=== PATIENT | male | born 1995 | race Caucasian/White ===

== ENCOUNTER 2016-08-05 21:04 | Emergency (ER) | payer BC ==
--- NOTE | 2016-08-05 22:01 | ED CLINICAL REPORT ---
Clinical Report - Physicians/Mid Levels [facility] [address] [place] [address] 08/05/2016 21:06 Patient: CHITO MARTE Time Seen: 21:44. Arrived- By private vehicle. Historian- patient. HISTORY OF PRESENT ILLNESS Chief Complaint: congestion and dyspnea. This started just prior to arrival and is still present but is better now. (patient states that his dyspnea is gone; he still has moderate nasal congestion.). The illness is described as mild. No cough, sputum production, chest discomfort or pain or fever. No muscle aches, chills, sore throat, hoarseness or nasal discharge. No sinus pressure, sinus drainage or ear pain. He has had difficulty breathing (Patient was out riding his skateboard, when he suddenly began to feel as though his nose Airways were congested. He states that he has a history of this happening previously when he was playing in a grassy field when he was younger. Patient occasionally has mild hayfever type allergies in the spring, but otherwise has no allergies. Patient states he did not take any medications, but called his mother, who told him to come to the emergency department. Patient does note that he sneezed quite a few times at onset of symptoms.). He has had nasal congestion. Additional history - No known contact with a sick individual. Similar symptoms previously: Occasionally. Recent medical care: Not recently seen/assessed. REVIEW OF SYSTEMS No headache, eye discomfort, nausea, vomiting or diarrhea. No abdominal pain, pedal edema, calf pain, difficulty with urination or skin rash. No enlarged lymph nodes or joint pain. The patient has had hay fever. All systems otherwise negative, except as recorded above. PAST HISTORY Problems: no known problems. Additional Surgeries: Tonsillectomy. Medications: None. Allergies: None. SOCIAL HISTORY Smoker- current status unknown. Occasional alcohol use. History of drug use: marijuana. ADDITIONAL NOTES The nursing notes have been reviewed. PHYSICAL EXAM Vital Signs: 08/05/2016 21:46 BP: 112/67. HR: 84. RR: 15. O2 saturation: 100%. Temp: 98.1 F. Pain level now: 0/10. Have been reviewed. Appearance: Alert. No acute distress. Eyes: Pupils equal, round and reactive to light. Eyes normal inspection. ENT: Nose normal. Pharynx normal. Uvula midline. (No edema of the facial or oropharyngeal structures.). No muffled or hoarse voice or trouble handling secretions. Neck: Normal inspection. CVS: Normal heart rate and rhythm. Heart sounds normal. Pulses normal. Respiratory: No respiratory distress. Breath sounds normal. Abdomen: Soft and nontender. Back: Normal inspection. Skin: Skin warm and dry. Normal skin color. No rash. Normal skin turgor. Extremities: Extremities exhibit normal ROM. No lower extremity edema. Neuro: (Grossly normal.). LABS, X-RAYS, AND EKG Pulse Oximetry: 08/05/2016 21:46 O2 saturation: 100%. (FIO2 - room air). Interpretation: normal. PROGRESS AND PROCEDURES Course of Care: I discussed with the patient that his examination was normal, and that I did not feel he was having an anaphylactic reaction. Patient stated that he felt much better, and that he had just been worried when he felt the initial trouble breathing. I did give the patient a dose of Benadryl here in the emergency department. I did not feel that he needed epinephrine at this time, or further treatment. We have discussed indications for return. Patient counseled in person regarding the patient's stable condition, diagnosis and need for follow-up. Concerns were addressed. Old medical records reviewed. Disposition: Discharged. Condition: stable and improved. CLINICAL IMPRESSION Acute seasonal allergic rhinitis. INSTRUCTIONS Drink plenty of fluids. (You may take Benadryl if symptoms continue. If you have worsening breathing troubles, please return to the emergency department.). Warnings: GENERAL WARNINGS: Return or contact your physician immediately if your condition worsens or changes unexpectedly, if not improving as expected, or if other problems arise. Follow-up: Follow up with your doctor as scheduled. Understanding of the discharge instructions verbalized by patient. (Electronically signed by Barbara Guillory MD 08/05/2016 23:32)
--- NOTE | 2016-08-05 22:01 | ED ORDER SUMMARY ---
..... Patient: CHITO MARTE OrderSheet [facility] VisitID: [id number] [address] [place] [address] 21y, M Registration Date/Time: 08/05/2016 ORDER SHEET Weight: 58.9 kg (stated) Allergies: None GENERAL ORDERS: MEDICATION ORDERS: Benadryl PO 25 mg (NOW) (21:58 08/05/2016 Angel BELTRAN) (Ack 22:06 Yon R.N.) (22:15 Yon R.N.) IV FLUIDS: ORDER SHEET NOTES: [Electronically signed by Varghese Vieira R.N. (22:38 08/05/2016)] [Electronically signed by Barbara Guillory MD (23:32 08/05/2016)] [Electronically locked/signed by Varghese Vieira R.N. (22:38 08/05/2016)]
--- NOTE | 2016-08-05 22:01 | ED ORDER SUMMARY ---
..... Patient: CHITO MARTE OrderSheet [facility] VisitID: [id number] [address] [place] [address] 21y, M Registration Date/Time: 08/05/2016 ORDER SHEET Weight: 58.9 kg (stated) Allergies: None GENERAL ORDERS: MEDICATION ORDERS: Benadryl PO 25 mg (NOW) (21:58 08/05/2016 Angel BELTRAN) (Ack 22:06 Yon R.N.) (22:15 Yon R.N.) IV FLUIDS: ORDER SHEET NOTES: [Electronically signed by Varghese Vieira R.N. (22:38 08/05/2016)] [Electronically signed by Barbara Guillory MD (23:32 08/05/2016)] [Electronically locked/signed by Varghese Vieira R.N. (22:38 08/05/2016)]
--- NOTE | 2016-08-05 22:01 | ED NURSING NOTES ---
Clinical Report - Nurses [facility] [address] [place] [address] 08/05/2016 21:06 Patient: CHITO MARTE TRIAGE Triage time 21:46 Aug 05 2016. Acuity: LEVEL 5. Chief Complaint: (pt reports long boarding and had a "sneezing fit" pt called his mom and was told to come to the ED). Alert. No acute distress. SEPSIS SCREEN: Sepsis Screen. Negative (no infection suspected/documented). PAZ COMA SCORE: [place] Coma Scale: 15- eyes open spontaneously (4); best verbal response- oriented x 4 (5); best motor response- obeys commands (6). --21:49 Varghese Vieira R.N. 21:46 08/05/16. BP: 112/67. HR: 84. RR: 15. O2 saturation: 100%. Temp: 98.1 F. Pain level now: 0/10. --21:49 Varghese Vieira R.N. Weight: 58.9 kg stated. Height/Length: 66 inches Per Patient. BMI: 21. --21:47 Varghese Vieira R.N. Medications None. --21:47 Varghese Vieira R.N. Medication/allergy information source: the patient. --21:49 Varghese Vieira R.N. Allergies None. --21:47 Varghese Vieira R.N. History Arrived by private vehicle. Historian: patient. Onset. (1999 today). Treatment GUEST SERVICES: None. PAST MEDICAL HX: Immunizations: up-to-date. SOCIAL HX: Heavy tobacco smoker (cigarette)- 1 pack per day. Occasional alcohol use. History of occasional drug use: marijuana. No infectious disease exposure. ABUSE ASSESSMENT: No report of abuse. SELF HARM ASSESSMENT: A self harm assessment was performed. The patient answered "no" to the question "Do you have thoughts of harming or killing yourself?". FALL RISK ASSESSMENT: Fall risk assessment completed. No fall risk identified. NUTRITIONAL RISK ASSESSMENT: The nutritional risk assessment revealed no deficiencies. FUNCTIONAL ASSESSMENT: Functional assessment: no impairments noted. LEARNING NEEDS ASSESSMENT: The learning needs assessment revealed no barriers. SKIN INTEGRITY ASSESSMENT: Skin integrity risk assessment completed. No skin integrity risk identified. --21:49 Varghese Vieira R.N. PROBLEMS: no known problems. ADDITIONAL SURGERIES: Tonsillectomy. --21:47 Varghese Vieira R.N. Interventions ID band on patient. --21:49 Varghese Vieira R.N. PHYSICAL ASSESSMENT Ambulatory to room. GENERAL / NEURO / PSYCH: Alert. Oriented X 4. Appears in no acute distress. HEENT: Pupils equal, round and reactive to light. RESPIRATORY: Respirations not labored. Breath sounds within normal limits. CVS: Pulses within normal limits. GI / : Abdomen soft and nontender. SKIN: Skin intact. Skin is warm and dry. Normal skin turgor. --21:49 Varghese Vieira R.N. NURSING PROGRESS NOTES Pharmacy Order Entry Technician provided for the general exam by the physician. Patient identifiers checked. Call light placed in reach. Side rails up x 1. Bed placed in lowest position. Brakes of bed on. Patient waiting for evaluation. --21:50 Varghese Vieira R.N. 22:10 08/05/2016 Benadryl (DiphenhydrAMINE HCl) PO 25 mg given. Allergies verified, confirmed 5 rights and sedative warning given to the patient. --22:15 Varghese Vieira R.N. DISPOSITION / DISCHARGE No learning barriers present. Discharge instructions provided and reviewed with the patient. Patient verbalized understanding. Written instructions provided in Angolan. The patient was discharged by the physician. He was discharged home. He left the Emergency Department ambulatory and via private vehicle. ( pt dc home ambulatory, denies sob, speaks full clear sentences, clears oral secretions,). --22:17 Varghese Vieira R.N. 22:15 08/05/16. BP: 115/63. HR: 77. RR: 16. O2 saturation: 97%. Temp: 98.3 F. Pain level now: 05/08. --22:17 Varghese Vieira R.N. Locked/Released at 08/05/2016 22:38 by Varghese Vieira R.N.
--- NOTE | 2016-08-05 22:01 | ED NURSING NOTES ---
Clinical Report - Nurses [facility] [address] [place] [address] 08/05/2016 21:06 Patient: CHITO MARTE TRIAGE Triage time 21:46 Aug 05 2016. Acuity: LEVEL 5. Chief Complaint: (pt reports long boarding and had a "sneezing fit" pt called his mom and was told to come to the ED). Alert. No acute distress. SEPSIS SCREEN: Sepsis Screen. Negative (no infection suspected/documented). PAZ COMA SCORE: [place] Coma Scale: 15- eyes open spontaneously (4); best verbal response- oriented x 4 (5); best motor response- obeys commands (6). --21:49 Varghese Vieira R.N. 21:46 08/05/16. BP: 112/67. HR: 84. RR: 15. O2 saturation: 100%. Temp: 98.1 F. Pain level now: 0/10. --21:49 Varghese Vieira R.N. Weight: 58.9 kg stated. Height/Length: 66 inches Per Patient. BMI: 21. --21:47 Varghese Vieira R.N. Medications None. --21:47 Varghese Vieira R.N. Medication/allergy information source: the patient. --21:49 Varghese Vieira R.N. Allergies None. --21:47 Varghese Vieira R.N. History Arrived by private vehicle. Historian: patient. Onset. (1999 today). Treatment PHYS ASST: None. PAST MEDICAL HX: Immunizations: up-to-date. SOCIAL HX: Heavy tobacco smoker (cigarette)- 1 pack per day. Occasional alcohol use. History of occasional drug use: marijuana. No infectious disease exposure. ABUSE ASSESSMENT: No report of abuse. SELF HARM ASSESSMENT: A self harm assessment was performed. The patient answered "no" to the question "Do you have thoughts of harming or killing yourself?". FALL RISK ASSESSMENT: Fall risk assessment completed. No fall risk identified. NUTRITIONAL RISK ASSESSMENT: The nutritional risk assessment revealed no deficiencies. FUNCTIONAL ASSESSMENT: Functional assessment: no impairments noted. LEARNING NEEDS ASSESSMENT: The learning needs assessment revealed no barriers. SKIN INTEGRITY ASSESSMENT: Skin integrity risk assessment completed. No skin integrity risk identified. --21:49 Varghese Vieira R.N. PROBLEMS: no known problems. ADDITIONAL SURGERIES: Tonsillectomy. --21:47 Varghese Vieira R.N. Interventions ID band on patient. --21:49 Varghese Vieira R.N. PHYSICAL ASSESSMENT Ambulatory to room. GENERAL / NEURO / PSYCH: Alert. Oriented X 4. Appears in no acute distress. HEENT: Pupils equal, round and reactive to light. RESPIRATORY: Respirations not labored. Breath sounds within normal limits. CVS: Pulses within normal limits. GI / : Abdomen soft and nontender. SKIN: Skin intact. Skin is warm and dry. Normal skin turgor. --21:49 Varghese Vieira R.N. NURSING PROGRESS NOTES [employer] Operator provided for the general exam by the physician. Patient identifiers checked. Call light placed in reach. Side rails up x 1. Bed placed in lowest position. Brakes of bed on. Patient waiting for evaluation. --21:50 Varghese Vieira R.N. 22:10 08/05/2016 Benadryl (DiphenhydrAMINE HCl) PO 25 mg given. Allergies verified, confirmed 5 rights and sedative warning given to the patient. --22:15 Varghese Vieira R.N. DISPOSITION / DISCHARGE No learning barriers present. Discharge instructions provided and reviewed with the patient. Patient verbalized understanding. Written instructions provided in Hungarian. The patient was discharged by the physician. He was discharged home. He left the Emergency Department ambulatory and via private vehicle. ( pt dc home ambulatory, denies sob, speaks full clear sentences, clears oral secretions,). --22:17 Varghese Vieira R.N. 22:15 08/05/16. BP: 115/63. HR: 77. RR: 16. O2 saturation: 97%. Temp: 98.3 F. Pain level now: 05/08. --22:17 Varghese Vieira R.N. Locked/Released at 08/05/2016 22:38 by Varghese Vieira R.N.
--- NOTE | 2016-08-05 23:33 | ED MAR SUMMARY ---
..... Medication Administration Record [facility] [address] [place] [address] Patient: CHITO MARTE Visit ID: [id number] 21y, M Weight: 58.9 kg Height/Length: 66 in BMI: 21 ALLERGIES: None Given 22:10 08/05/2016 Varghese Vieira R.N. Medication Administered: BENADRYL [PO] (DIPHENHYDRAMINE HCL), Dose: 25 mg PO. Medication Ordered: Benadryl PO 25 mg (NOW).
--- NOTE | 2016-08-05 23:33 | ED DISCHARGE INSTRUCTIONS ---
Patient: CHITO MARTE General Instructions [facility] VisitID: [id number] [place] [address] 21y, M Registration Date/Time: 08/05/2016 Acute seasonal allergic rhinitis. INSTRUCTIONS Drink plenty of fluids. (You may take Benadryl if symptoms continue. If you have worsening breathing troubles, please return to the emergency department.). Warnings: GENERAL WARNINGS: Return or contact your physician immediately if your condition worsens or changes unexpectedly, if not improving as expected, or if other problems arise. Follow-up: Follow up with your doctor as scheduled. Understanding of the discharge instructions verbalized by patient. ADDITIONAL INFORMATION Nasal Allergy Nasal Allergy, also called Allergic Rhinitis occurs after exposure to pollen, molds, mildew, animal dander (scales from animal skin, hair and feathers), dust, smoke and fumes. (These are called allergens). When pollen causes a nasal allergy it is commonly called Hay Fever. When these particles contact the lining of the nose, eyes, eyelids, sinuses or throat, they cause the cells to release a chemical called histamine. Histamine may cause a watery discharge from the eyes or nose. It may also cause violent sneezing, nasal congestion, itching of the eyes, nose, throat and mouth. Prevention: Nasal allergy cannot be cured but symptoms can be reduced. Avoid or reduce exposure to the allergen when possible, by the following measures: POLLEN Stay indoors on hot windy days during pollen season Keep windows and doors closed Use an air conditioner with an electrostatic filter DUST, MOLD & MILDEW Follow these measures, especially in the bedroom: When cleaning use vacuum event decorator, oiled mops and damp cloths; dont stir up the dust. Once a week clean the beal, woodwork and floors with a damp mop and vacuum carpets. Once a year clean the bed frame and springs (do this outside). Cover the box springs with plastic. Do not use mattress pads. Remove stuffed chairs and rugs from the bedroom. Discard old moldy books, furniture and bedding. Use synthetic fabrics for furniture, curtains and bedding. Avoid quilts, comforters, and stuffed toys. ANIMAL DANDER Remove all indoor pets (except fish and reptiles). Avoid all contact with furry animals. Avoid down-stuffed pillows and coats. Some persons are also sensitive to wool and should avoid it. OTHER IRRITANTS Do not smoke and avoid the smoke of others. Some persons are sensitive to cosmetic powder, baby powder and powdered laundry detergents. Therefore, these powders should be avoided. Home Care: DECONGESTANT pills and sprays (Sudafed, NeoSynephrine, Afrin), reduce tissue swelling and watery discharge. Overuse of nasal decongestant sprays may make symptoms worse. Do not use these more often than recommended. ANTIHISTAMINES block the release of histamine during the allergic response. Antihistamines are more effective when taken BEFORE symptoms develop. Unless a prescription antihistamine was prescribed, you may take CLARITIN (loratadine). (Claritin is an nesq-lqd-qegzfxy antihistamine that does not cause drowsiness.) STEROID nasal sprays (Beconase, Vancenase, Nasalide) or oral steroids (Prednisone) may also be prescribed for more severe symptoms. These help to reduce the local inflammation which adds to the allergic response. If you have ASTHMA, pollen season may make your asthma symptoms worse. It is important that you use your asthma medicines as directed during this time to prevent or treat attacks. Some persons with asthma have a worsening of their asthma symptoms when taking antihistamines. If you notice this, stop the antihistamines and notify your doctor. Follow Up with your doctor or as directed by our staff if your symptoms are not improving with the treatment advised. Get Prompt Medical Attention if any of the following occur: Facial or sinus pain or colored drainage from the nose Severe headache or ear pain Fever of 100.4F (38C) or higher, or as directed by your healthcare provider Wheezing or trouble breathing (If you already know you have asthma, return if your asthma symptoms do not respond to the usual doses of your medicine) Cough with lots of colored sputum (mucus) You have been given the following additional information: Allergic Rhinitis (Electronically signed by Barbara Guillory MD 08/05/2016 23:32)
--- NOTE | 2016-08-05 23:33 | ED MED RECONCILIATION SUMMARY ---
Patient: CHITO MARTE Medication Reconciliation Report [facility] VisitID: [id number] [address] [place] [address] 21y, M Registration Date/Time: 08/05/2016 Weight: 58.9 kg Height/Length: 66 in. BMI: 21.0 ALLERGIES: None The patient's Home Medications are listed below: NONE. The source(s) of the original Home Medication information: patient The following Medications were given to the patient in the Emergency Department: Benadryl [PO] PO 25 mg, administered: 08/05/2016 10:10:00 PM The following Medications were prescribed to the patient: None.
--- NOTE | 2016-08-05 23:33 | ED DISCHARGE INSTRUCTIONS ---
Patient: CHITO MARTE General Instructions [facility] VisitID: [id number] [place] [address] 21y, M Registration Date/Time: 08/05/2016 Acute seasonal allergic rhinitis. INSTRUCTIONS Drink plenty of fluids. (You may take Benadryl if symptoms continue. If you have worsening breathing troubles, please return to the emergency department.). Warnings: GENERAL WARNINGS: Return or contact your physician immediately if your condition worsens or changes unexpectedly, if not improving as expected, or if other problems arise. Follow-up: Follow up with your doctor as scheduled. Understanding of the discharge instructions verbalized by patient. ADDITIONAL INFORMATION Nasal Allergy Nasal Allergy, also called Allergic Rhinitis occurs after exposure to pollen, molds, mildew, animal dander (scales from animal skin, hair and feathers), dust, smoke and fumes. (These are called allergens). When pollen causes a nasal allergy it is commonly called Hay Fever. When these particles contact the lining of the nose, eyes, eyelids, sinuses or throat, they cause the cells to release a chemical called histamine. Histamine may cause a watery discharge from the eyes or nose. It may also cause violent sneezing, nasal congestion, itching of the eyes, nose, throat and mouth. Prevention: Nasal allergy cannot be cured but symptoms can be reduced. Avoid or reduce exposure to the allergen when possible, by the following measures: POLLEN Stay indoors on hot windy days during pollen season Keep windows and doors closed Use an air conditioner with an electrostatic filter DUST, MOLD & MILDEW Follow these measures, especially in the bedroom: When cleaning use vacuum assistant family teacher, oiled mops and damp cloths; dont stir up the dust. Once a week clean the beal, woodwork and floors with a damp mop and vacuum carpets. Once a year clean the bed frame and springs (do this outside). Cover the box springs with plastic. Do not use mattress pads. Remove stuffed chairs and rugs from the bedroom. Discard old moldy books, furniture and bedding. Use synthetic fabrics for furniture, curtains and bedding. Avoid quilts, comforters, and stuffed toys. ANIMAL DANDER Remove all indoor pets (except fish and reptiles). Avoid all contact with furry animals. Avoid down-stuffed pillows and coats. Some persons are also sensitive to wool and should avoid it. OTHER IRRITANTS Do not smoke and avoid the smoke of others. Some persons are sensitive to cosmetic powder, baby powder and powdered laundry detergents. Therefore, these powders should be avoided. Home Care: DECONGESTANT pills and sprays (Sudafed, NeoSynephrine, Afrin), reduce tissue swelling and watery discharge. Overuse of nasal decongestant sprays may make symptoms worse. Do not use these more often than recommended. ANTIHISTAMINES block the release of histamine during the allergic response. Antihistamines are more effective when taken BEFORE symptoms develop. Unless a prescription antihistamine was prescribed, you may take CLARITIN (loratadine). (Claritin is an vxsa-bvg-allanxe antihistamine that does not cause drowsiness.) STEROID nasal sprays (Beconase, Vancenase, Nasalide) or oral steroids (Prednisone) may also be prescribed for more severe symptoms. These help to reduce the local inflammation which adds to the allergic response. If you have ASTHMA, pollen season may make your asthma symptoms worse. It is important that you use your asthma medicines as directed during this time to prevent or treat attacks. Some persons with asthma have a worsening of their asthma symptoms when taking antihistamines. If you notice this, stop the antihistamines and notify your doctor. Follow Up with your doctor or as directed by our staff if your symptoms are not improving with the treatment advised. Get Prompt Medical Attention if any of the following occur: Facial or sinus pain or colored drainage from the nose Severe headache or ear pain Fever of 100.4F (38C) or higher, or as directed by your healthcare provider Wheezing or trouble breathing (If you already know you have asthma, return if your asthma symptoms do not respond to the usual doses of your medicine) Cough with lots of colored sputum (mucus) You have been given the following additional information: Allergic Rhinitis (Electronically signed by Barbara Guillory MD 08/05/2016 23:32)
--- NOTE | 2016-08-05 23:33 | ED MAR SUMMARY ---
..... Medication Administration Record [facility] [address] [place] [address] Patient: CHITO MARTE Visit ID: [id number] 21y, M Weight: 58.9 kg Height/Length: 66 in BMI: 21 ALLERGIES: None Given 22:10 08/05/2016 Varghese Vieira R.N. Medication Administered: BENADRYL [PO] (DIPHENHYDRAMINE HCL), Dose: 25 mg PO. Medication Ordered: Benadryl PO 25 mg (NOW).
--- NOTE | 2016-08-05 23:33 | ED MED RECONCILIATION SUMMARY ---
Patient: CHITO MARTE Medication Reconciliation Report [facility] VisitID: [id number] [address] [place] [address] 21y, M Registration Date/Time: 08/05/2016 Weight: 58.9 kg Height/Length: 66 in. BMI: 21.0 ALLERGIES: None The patient's Home Medications are listed below: NONE. The source(s) of the original Home Medication information: patient The following Medications were given to the patient in the Emergency Department: Benadryl [PO] PO 25 mg, administered: 08/05/2016 10:10:00 PM The following Medications were prescribed to the patient: None.
== END 2016-08-05 22:14 | disposition home or self-care (01) ==
LOC: ED SRH 21:04
DX: J30.2 Other seasonal allergic rhinitis (principal)